=== PATIENT | female | born 1990 | race Hispanic/Latino ===

== ENCOUNTER 2017-02-07 21:29 | Emergency (ER) | payer BC ==
[2017-02-07 21:34] VITALS: BP 121/76; PULSE 73; RESP 16; TEMP 99.1; O2SAT 100
--- NOTE | 2017-02-07 21:37 | ED PDOC ---
Lower Extremity Pain/Injury Time Seen by Provider: 02/07/17 21:35 Chief Complaint (Nursing): Lower Extremity Problem/Injury Chief Complaint (Provider): left ankle pain History Per: Patient Additional Complaint(s): 26-year-old female presents to emergency Department with pain to left ankle status post rolling her ankle while jumping on a trampoline just prior to arrival. Patient able to bear weight but has pain when doing so. She denies numbness or tingling to the affected area. She rates pain as 7/10. Past Medical History Reviewed: Historical Data, Nursing Documentation, Vital Signs Vital Signs: Last Vital Signs Temp 99.1 F 02/07/17 21:31 Pulse 73 02/07/17 21:31 Resp 16 02/07/17 21:31 BP 121/76 02/07/17 21:31 Pulse Ox 100 02/07/17 21:31 - Medical History PMH: No Chronic Diseases - Surgical History Surgical History: No Surg Hx - Family History Family History: States: No Known Family Hx - Social History Current smoker - smoking cessation education provided: No Alcohol: None Drugs: Denies - Allergies Allergies/Adverse Reactions: Allergies Allergy/AdvReac Type Severity Reaction Status Date / Time No Known Allergies Allergy Verified 02/07/17 21:31 Review of Systems ROS Statement: Except As Marked, All Systems Reviewed And Found Negative Musculoskeletal: Positive for: Other (left ankle injury) Physical Exam - Reviewed Nursing Documentation Reviewed: Yes Vital Signs Reviewed: Yes - Physical Exam Appears: Positive for: Well, Non-toxic, No Acute Distress Skin: Positive for: Rash Eye Exam: Positive for: Normal appearance Extremity: Positive for: Other (Swelling and tenderness left lateral malleolus, nontender left foot, normal distal sensation) Neurologic/Psych: Positive for: Alert, Oriented - Laboratory Results Urine POC: Negative (Test was declined, patient is certain she is not ) - ECG O2 Sat by Pulse Oximetry: 100 Pulse Ox Interpretation: Normal - Other Rad Left ankle x-ray X-Ray: Interpreted by Me, Viewed By Me X-Ray Interpretation: no fx, no dis Medical Decision Making Medical Decision Makin26 year old with left ankle injury Plan: PO motrin X-ray left ankle X-ray is negative for fracture or dislocation. Crutches given. See procedure note. Patient was advised to ice and elevate affected area and was instructed to take Advil for pain as needed. Patient was given referral to bandoleer straightener stamper on- call. Procedures - Splinting Location: left ankle Pre-Made Type: tana wrap and aircast Pre-Proc Neuro Vasc Exam: normal Post-Proc Neuro Vasc Exam: normal Disposition - Clinical Impression Clinical Impression: Ankle sprain - Patient ED Disposition Is Patient to be Admitted: No Counseled Patient/Family Regarding: Studies Performed, Diagnosis, Need For Followup - Disposition Referrals: Silviano Vital DPM [Staff Provider] - Disposition: Routine/Home Disposition Time: 22:20 Condition: STABLE Additional Instructions: Ice, rest and elevate affected area. Advil as needed for pain. Follow up with bandoleer straightener stamper in 2-3 days. Instructions: Ankle Sprain (ED), Ankle Stirrup Splint (ED), Crutch Instructions (ED) Forms: [employer] (Tajik)
--- NOTE | 2017-02-08 11:59 | RAD ---
PROCEDURE: Left Ankle Radiographs. HISTORY: trauma COMPARISON: None FINDINGS: BONES: Normal. No fracture. JOINTS: Normal. No osteoarthritis. Ankle mortise maintained. Talar dome intact SOFT TISSUES: Normal. OTHER FINDINGS: None. IMPRESSION: Normal left ankle radiographs.
== END 2017-02-07 22:40 | disposition home or self-care (01) ==
LOC: H.ER 21:29
DX: S93.402A Sprain of unspecified ligament of left ankle, initial encounter (principal); X50.9XXA Other and unspecified overexertion or strenuous movements or postures, initial encounter; Y92.89 Other specified places as the place of occurrence of the external cause

== ENCOUNTER 2017-06-21 02:03 | Emergency (ER) | payer BC ==
[2017-06-21 02:19] VITALS: TEMP 97.5
--- NOTE | 2017-06-21 05:36 | ED PDOC ---
HPI: Psych/Substance Abuse Time Seen by Provider: 06/21/17 02:15 Chief Complaint (Nursing): Alcohol Ingestion Chief Complaint (Provider): Alcohol abuse - Brought in by evaluation by EMS History Per: Patient History/Exam Limitations: no limitations Onset/Duration Of Symptoms: Unknown Current Symptoms Are (Timing): Still Present Modifying Factor(s): Alcohol Past Medical History Reviewed: Historical Data, Nursing Documentation, Vital Signs Vital Signs: Last Vital Signs Temp 97.5 F L 06/21/17 02:14 Pulse 78 06/21/17 02:28 Resp 18 06/21/17 02:28 BP 123/69 06/21/17 02:14 Pulse Ox 98 06/21/17 02:28 - Medical History PMH: No Chronic Diseases - Surgical History Surgical History: No Surg Hx - Family History Family History: States: No Known Family Hx - Living Arrangements Living Arrangements: With Family - Allergies Allergies/Adverse Reactions: Allergies Allergy/AdvReac Type Severity Reaction Status Date / Time No Known Allergies Allergy Verified 02/07/17 21:31 Physical Exam - Reviewed Nursing Documentation Reviewed: Yes Vital Signs Reviewed: Yes - Physical Exam Appears: Positive for: Well, Non-toxic, No Acute Distress Head Exam: Positive for: ATRAUMATIC, NORMAL INSPECTION, NORMOCEPHALIC Skin: Positive for: Normal Color, Warm, DRY Eye Exam: Positive for: Normal appearance ENT: Positive for: Normal ENT Inspection Neck: Positive for: Normal, Painless ROM Cardiovascular/Chest: Positive for: Regular Rate, Rhythm Respiratory: Positive for: Normal Breath Sounds. Negative for: Accessory Muscle Use Back: Positive for: Normal Inspection Extremity: Positive for: Normal ROM Neurologic/Psych: Positive for: Alert, Gait (Unsteady). Negative for: Oriented - ECG O2 Sat by Pulse Oximetry: 98 Medical Decision Making Medical Decision Making: Pt continues to get up off bed and take off gown. Disposition - Clinical Impression Clinical Impression: Alcohol abuse with intoxication - Patient ED Disposition Is Patient to be Admitted: Transfer of Care - Disposition Disposition: Transfer of Care Disposition Time: 05:37 Condition: STABLE
--- NOTE | 2017-06-21 06:02 | ED PDOC ---
- ECG O2 Sat by Pulse Oximetry: 98 Medical Decision Making Medical Decision Making: Patient s/o to provider by Nona ANTONIO pending sobriety Patient s/o to Dr Valencia at 7AM Disposition - Clinical Impression Clinical Impression: Alcohol abuse with intoxication - POA Present On Arrival: None - Disposition Disposition: Transfer of Care Disposition Time: 07:00 Condition: STABLE Forms: [employer] (Yoruba) Patient Signed Over To: Dale Valencia
--- NOTE | 2017-06-21 07:08 | ED PDOC ---
- Laboratory Results Result Diagrams: 06/21/17 07:50 06/21/17 07:50 - ECG O2 Sat by Pulse Oximetry: 96 (RA) Pulse Ox Interpretation: Normal Medical Decision Making Medical Decision Makin:00 Patient signed out to me, Dale Valencia MD, from Nathaniel Mcduffie MD pending sobriety Scribe Attestation: Documented by Suzette Rosales, acting as a scribe for Dale Valencia MD. Awake alert oriented x 3 No focal neuro deficits. NSR on monitor now but had episode of tachycardia earlier. EKG,rate 150 suspect A flutter with 2:1 block. Advised 24 hr obs but pt bull not want to stay. Aware of risks including cardiac arrhythmia and and stroke. Will f/u [facility] Provider Scribe Attestation: All medical record entries made by the Scribe were at my direction and personally dictated by me. I have reviewed the chart and agree that the record accurately reflects my personal performance of the history, physical exam, medical decision making, and the department course for this patient. I have also personally directed, reviewed, and agree with the discharge instructions and disposition. Disposition - Clinical Impression Clinical Impression: Alcohol abuse with intoxication, Tachycardia - POA Present On Arrival: None - Disposition Referrals: [facility] [Outside] Disposition: Routine/Home Disposition Time: 10:09 Condition: FAIR Instructions: Alcohol Intoxication (ED), Atrial Tachycardia (ED) Forms: [employer] (Kazakh)
[2017-06-21 07:57] LABS: BASO % 0.4 % (0.0-2.0); EOS # 0.1 K/uL (0.0-0.7); HEMATOCRIT 37.7 % (34.0-47.0); LYMPH # 1.9 K/uL (1.0-4.3); MEAN CELL VOLUME 87.6 fl (81.0-99.0); MEAN CORPUSCULAR HEMOGLOBIN 28.9 pg (27.0-31.0); MEAN PLATELET VOLUME 7.8 fl (7.2-11.7); MONO # 0.6 K/uL (0.0-0.8); MONO % 8.2 % (0.0-10.0); NEUT # 4.3 K/uL (1.8-7.0); NEUT % 62.4 % (50.0-75.0); NRBC % 0.1 % (0.0-0.0); RED CELL DISTRIBUTION WIDTH 12.7 % (11.5-14.5); WHITE BLOOD COUNT 6.9 K/uL (4.8-10.8)
[2017-06-21 08:11] LABS: ALB/GLOB RATIO 1.4 (1.0-2.1); ALKALINE PHOSPHATASE 41 U/L (38-126); ALT/SGPT 37 U/L (9-52); AST/SGOT 34 U/L (14-36); BILIRUBIN,TOTAL 0.3 mg/dl (0.2-1.3); BLOOD UREA NITROGEN 13 mg/dl (7-17); CALCIUM 8.7 mg/dL (8.4-10.2); CARBON DIOXIDE 22 mmol/L (22-30); CHLORIDE 108 mmol/L (98-107); GFR AFRICAN-AMERICAN > 60; GLUCOSE,RANDOM 111 mg/dL (65-105); SODIUM 145 mmol/l (132-148); TOTAL PROTEIN 7.2 G/DL (6.3-8.2)
[2017-06-21 08:43] VITALS: RESP 16
[2017-06-21 08:44] VITALS: BP 106/58; PULSE 98
[2017-06-21 10:09] VITALS: O2SAT 96
== END 2017-06-21 10:42 | disposition home or self-care (01) ==
LOC: H.ER 02:03
DX: F10.129 Alcohol abuse with intoxication, unspecified (principal); R00.0 Tachycardia, unspecified
CPT/HCPCS: 80053; 82948; 84484; 85025; 96372; 99285; G0480; J1630; J2060